=== PATIENT | male | born 1985 | race Hispanic/Latino ===

== ENCOUNTER 2019-08-25 18:43 | Emergency (ER) | payer SELFPAY ==
[2019-08-25] MEDS ORDERED: DIAZEPAM 5 MG TABLET ONE (19:57)
[2019-08-25] MEDS ORDERED: KETOROLAC 30 MG/ML INJ ONE (19:57)
[2019-08-25] MEDS ORDERED: HYDROCODONE/APAP 10/325 TAB ONE (19:57)
[2019-08-25] MEDS ORDERED: dexAMETHasone 10 MG/ML VIAL ONE (20:06)
--- NOTE | 2019-08-25 20:35 | RAD REPORT ---
EXAM DESCRIPTION: RAD - Lumbar Spine 3 Views - 08/25/2019 8:06 pm CLINICAL HISTORY: back pain COMPARISON: No comparisons FINDINGS: A three-view lumbar spine examination was performed. Lumbar bodies are normal in height and alignment. No fracture or acute bony process seen. No disc spa ce narrowing. No other significant findings. No pars defects identified. IMPRESSION: Negative Lumbar Spine examination. Concerns for disc herniation, central canal abnormality or occult bone process can be addressed with MR imaging.
--- NOTE | 2019-08-25 20:59 | EDPHYS ---
Physician Documentation [facility] Name: Grant Nielsen Jr Age: 33 yrs Sex: Male : 1985 Arrival Date: 08/25/2019 Time: 18:47 Bed 20 Private MD: ED Physician Jose Manuel Polanco HPI: 08/25 20:01 This 33 yrs old Male presents to ER via Ambulatory with complaints of Back jmm Pain. 20:01 The patient presents with pain that is acute. Onset: The symptoms/episode jmm began/occurred acutely, just prior to arrival. The pain does not radiate. Associated signs and symptoms: Pertinent negatives: dysuria, fever, incontinence, numbness, urinary retention. 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 Patient states approx 3 week prior, he fell 8 feet on his back while on a scaffold. Patient denies bowel or bladder issues since. . Historical: - Allergies: 19:10 No Known Allergies; ca1 - Home Meds: 19:10 None [Active]; ca1 - PMHx: 19:10 None; ca1 - PSHx: 19:10 None; ca1 - Immunization history:: Adult Immunizations not up to date, Last tetanus immunization: not immunized Flu vaccine is not up to date. - Coronavirus screen:: The patient has NOT traveled to [place] in the past 14 days. The patient has NOT had contact with known/suspected case of Coronavirus?. - Social history:: Smoking status: Patient reports the use of cigarette tobacco products, smokes one pack cigarettes per day. - Ebola Screening: : Patient negative for fever greater than or equal to 101.5 degrees Fahrenheit, and additional compatible Ebola Virus Disease symptoms Patient denies exposure to infectious person Patient denies travel to an Ebola-affected area in the 21 days before illness onset No symptoms or risks identified at this time. ROS: 20:01 Constitutional: Negative for fever, chills, and weight loss, Cardiovascular: Negative jmm for chest pain, palpitations, and edema, Respiratory: Negative for shortness of breath, cough, wheezing, and pleuritic chest pain. 20:01 Back: Positive for pain with movement. 20:01 All other systems are negative. Exam: 20:01 Constitutional: This is a well developed, well nourished patient who is awake, alert, jmm and in no acute distress. Head/Face: atraumatic. Eyes: EOMI, no conjunctival erythema appreciated ENT: Moist Mucus Membranes Neck: Trachea midline, Supple Chest/axilla: Normal chest wall appearance and motion. Cardiovascular: Regular rate and rhythm. No edema appreciated Respiratory: Normal respirations, no respiratory distress appreciated Abdomen/GI: Non distended, soft 20:01 Back: pain, that is mild, of the lumbar area. 20:01 Musculoskeletal/extremity: ROM: intact in all extremities. 20:01 Neuro: Orientation: is normal, Mentation: is normal, Memory: is normal. 20:01 Neuro: extensor hallucis longus intact. 20:01 Psych: exam not indicated, Behavior/mood is pleasant. Vital Signs: 19:10 BP 162 / 107; Pulse 103; Resp 16 S; Temp 98.7(O); Pulse Ox 98% on R/A; Weight 108.86 kg ca1 (R); Height 5 ft. 9 in. (175.26 cm) (R); Pain 8/10; 21:00 BP 115 / 80; Pulse 85; Resp 18; Pulse Ox 99% on R/A; wh 19:10 Body Mass Index 35.44 (108.86 kg, 175.26 cm) ca1 MDM: 19:39 Patient medically screened. [facility] 20:54 Data reviewed: vital signs, nurses notes. Counseling: I had a detailed discussion with ann the patient and/or guardian regarding: the historical points, exam findings, and any diagnostic results supporting the discharge/admit diagnosis, radiology results, the need for outpatient follow up, to return to the emergency department if symptoms worsen or persist or if there are any questions or concerns that arise at home. ED course: Pain relieved in the ED. Patient is able to ambulate in the ED. I do not suspect cord compression or cauda equina. Patient is advised to follow up with pcp or otherwise given strict return precautions. Patient understood and agrees with the plan of care. . 08/25 19:44 Order name: Lumbar Spine (3 Views) XRAY [facility] 08/25 20:38 Order name: RAD; Complete Time: 20:59 EDMS Administered Medications: 20:25 Drug: Ketorolac 30 mg Route: IM; Site: right deltoid; wh 21:19 Follow up: Response: No adverse reaction; Pain is decreased 20:30 Drug: [place] 10 mg-325 mg 1 tabs Route: PO; 21:19 Follow up: Response: No adverse reaction; Pain is decreased; RASS: Alert and Calm (0) 20:30 Drug: Valium 5 mg Route: PO; 21:19 Follow up: Response: No adverse reaction; RASS: Alert and Calm (0) 20:35 Drug: Decadron 10 mg Route: IM; Site: left deltoid; 21:20 Follow up: Response: No adverse reaction Disposition: 22:28 Co-signature as Attending Physician, Jose Manuel Polanco MD. rn Disposition: 08/25/19 20:56 Discharged to Home. Impression: Strain of muscle, fascia and tendon of lower back. - Condition is Stable. - Discharge Instructions: Back Pain, Adult. - Prescriptions for Ibuprofen 800 mg Oral Tablet - take 1 tablet by ORAL route every 8 hours As needed take with food; 30 tablet. Zanaflex 4 mg Oral Tablet - take 1 tablet by ORAL route every 8 hours As needed; 20 tablet. - Medication Reconciliation Form, Thank You Letter, Antibiotic Education, Prescription Opioid Use, Work release form form. - Follow up: Private Physician; When: 2 - 3 days; Reason: Recheck today's complaints, Continuance of care, Re-evaluation by your physician. Signatures: Dispatcher [employer] EDMS Felix Carrera PA PA jmm Nieto, Roman, MD MD rn Habalo [facility] Kamila Avina RN RN [facility]: (The following items were deleted from the chart) 21: 20:56 08/25/2019 20:56 Discharged to Home. Impression: Strain of muscle, fascia and wh tendon of lower back. Condition is Stable. Forms are Medication Reconciliation Form, Thank You Letter, Antibiotic Education, Prescription Opioid Use. Follow up: Private Physician; When: 2 - 3 days; Reason: Recheck today's complaints, Continuance of care, Re-evaluation by your physician. ann
--- NOTE | 2019-08-25 20:59 | ER ---
Nurse's Notes [facility] Name: Grant Nielsen Jr Age: 33 yrs Sex: Male : 1985 Arrival Date: 08/25/2019 Time: 18:47 Bed 20 Private MD: Diagnosis: Strain of muscle, fascia and tendon of lower back Presentation: 08/25 19:04 Presenting complaint: Patient states: Hurt my back at work. 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 About a month ago, I fell landed on a scaffold but I had a harness on. Did not see a doctor. 2 weeks after, picking up a 5 gallon concrete bucket, I hurt my back then and had to wear a brace. Transition of care: patient was not received from another setting of care. Onset of symptoms was August 25, 2019. Risk Assessment: Do you want to hurt yourself or someone else? Patient reports no desire to harm self or others. Initial Sepsis Screen: Does the patient meet any 2 criteria? No. Patient's initial sepsis screen is negative. Does the patient have a suspected source of infection? No. Patient's initial sepsis screen is negative. Care prior to arrival: None. 19:04 Method Of Arrival: Ambulatory ca1 19:04 Acuity: CARL 4 ca1 Historical: - Allergies: 19:10 No Known Allergies; ca1 - Home Meds: 19:10 None [Active]; ca1 - PMHx: 19:10 None; ca1 - PSHx: 19:10 None; ca1 - Immunization history:: Adult Immunizations not up to date, Last tetanus immunization: not immunized Flu vaccine is not up to date. - Coronavirus screen:: The patient has NOT traveled to [place] in the past 14 days. The patient has NOT had contact with known/suspected case of Coronavirus?. - Social history:: Smoking status: Patient reports the use of cigarette tobacco products, smokes one pack cigarettes per day. - Ebola Screening: : Patient negative for fever greater than or equal to 101.5 degrees Fahrenheit, and additional compatible Ebola Virus Disease symptoms Patient denies exposure to infectious person Patient denies travel to an Ebola-affected area in the 21 days before illness onset No symptoms or risks identified at this time. Screenin:15 Abuse screen: Denies threats or abuse. Denies injuries from another. Nutritional wh screening: No deficits noted. Tuberculosis screening: No symptoms or risk factors identified. Fall Risk None identified. Assessment: 19:30 General: Appears in no apparent distress. Behavior is calm, cooperative, appropriate wh for age. Pain: Complains of pain in lumbar area Pain does not radiate. Pain currently is 9 out of 10 on a pain scale. Quality of pain is described as aching, Pain began today. Neuro: Level of Consciousness is awake, alert, obeys commands, Oriented to person, place, time, situation, Appropriate for age. Cardiovascular: Capillary refill < 3 seconds. Respiratory: Airway is patent Respiratory effort is even, unlabored, Respiratory pattern is regular, symmetrical. GI: Abdomen is flat, non-distended. : No signs and/or symptoms were reported regarding the genitourinary system. EENT: No signs and/or symptoms were reported regarding the EENT system. Derm: Skin is intact, is healthy with good turgor, Skin is pink, warm \T\ dry. normal. Musculoskeletal: Circulation, motion, and sensation intact. 20:30 Reassessment: Patient appears in no apparent distress at this time. No changes from previously documented assessment. Patient and/or family updated on plan of care and expected duration. Pain level reassessed. Patient is alert, oriented x 3, equal unlabored respirations, skin warm/dry/pink. 21:21 Reassessment: Patient appears in no apparent distress at this time. No changes from previously documented assessment. Patient and/or family updated on plan of care and expected duration. Pain level reassessed. Patient is alert, oriented x 3, equal unlabored respirations, skin warm/dry/pink. Patient states feeling better. Patient states symptoms have improved. Vital Signs: 19:10 BP 162 / 107; Pulse 103; Resp 16 S; Temp 98.7(O); Pulse Ox 98% on R/A; Weight 108.86 kg ca1 (R); Height 5 ft. 9 in. (175.26 cm) (R); Pain 8/10; 21:00 BP 115 / 80; Pulse 85; Resp 18; Pulse Ox 99% on R/A; wh 19:10 Body Mass Index 35.44 (108.86 kg, 175.26 cm) ca1 ED Course: 18:47 Patient arrived in ED. ag5 19:08 Triage completed. ca1 19:10 Arm band placed on right wrist. ca1 19:11 Felix Carrera PA is PHCP. [facility] 19:11 Jose Manuel Polanco MD is Attending Physician. [facility] 19:15 Patient has correct armband on for positive identification. Bed in low position. Call light in reach. Side rails up X 1. Pulse ox on. NIBP on. 19:47 Jannie Tenorio is Primary Nurse. 21:22 No provider procedures requiring assistance completed. Patient did not have IV access during this emergency room visit. Administered Medications: 20:25 Drug: Ketorolac 30 mg Route: IM; Site: right deltoid; 21:19 Follow up: Response: No adverse reaction; Pain is decreased 20:30 Drug: [place] 10 mg-325 mg 1 tabs Route: PO; 21:19 Follow up: Response: No adverse reaction; Pain is decreased; RASS: Alert and Calm (0) 20:30 Drug: Valium 5 mg Route: PO; 21:19 Follow up: Response: No adverse reaction; RASS: Alert and Calm (0) 20:35 Drug: Decadron 10 mg Route: IM; Site: left deltoid; 21:20 Follow up: Response: No adverse reaction Outcome: 20:56 Discharge ordered by . [facility] 21:22 Discharged to home ambulatory, with family. 21:22 Condition: stable 21:22 Discharge instructions given to patient, family, Instructed on discharge instructions, follow up and referral plans. no drinking with medication, medication usage, POC Demonstrated understanding of instructions, follow-up care, medications, POC Prescriptions given X 2. 21:26 Patient left the ED. Signatures: Felix Carrera PA PA jmm Habalo, Winsy Kamila Avina RN RN ca1 [place] ag5
[2019-08-26 14:19] VITALS: BP 115/80
[2019-08-26 14:24] VITALS: TEMP 99.1; O2SAT 100
== END 2019-08-25 21:26 | disposition home or self-care (01) ==
LOC: ER 18:43
DX: S39.012A Strain of muscle, fascia and tendon of lower back, initial encounter (principal); X50.0XXA Overexertion from strenuous movement or load, initial encounter; Y93.89 Activity, other specified; Y92.9 Unspecified place or not applicable; Y99.0 Civilian activity done for income or pay
CPT/HCPCS: 72100; 96372; 99283; J1100